=== PATIENT | male | born 1980 | race African-American/Black ===

== ENCOUNTER 2020-06-05 19:04 | Emergency (ER) | payer SELFPAY ==
[2020-06-05] MEDS ORDERED: Sterile Water 0 ML ONE (19:59)
[2020-06-05] MEDS ORDERED: Sterile Water 10 ML ONE (20:00)
[2020-06-05] MEDS ORDERED: Water For Inject, Bacteriostat 30 ML ONE (20:01)
[2020-06-05] MEDS ORDERED: Cyclobenzaprine 10 MG TAB ONE (20:07)
[2020-06-05] MEDS ORDERED: HYDROcodone/Acetaminophen 10/325 mg Tablet ONE (20:07)
== END 2020-06-05 20:28 | disposition home or self-care (01) ==
LOC: MADERS 19:04
DX: M54.41 Lumbago with sciatica, right side (principal); R26.9 Unspecified abnormalities of gait and mobility; Z79.899 Other long term (current) drug therapy
CPT/HCPCS: 36416; 96372; 99283; J1040

== ENCOUNTER 2020-08-01 16:02 | Emergency (ER) | payer MEDICARE, SELFPAY | END 2020-08-01 16:30 | disposition home or self-care (01) | LOC: MADERS 16:02 | DX: M25.412 Effusion, left shoulder (principal); T50.B95A Adverse effect of other viral vaccines, initial encounter | CPT/HCPCS: 99281 ==

== ENCOUNTER 2020-10-26 17:02 | Emergency (ER) | payer BC, MEDICARE ==
[2020-10-26] MEDS ORDERED: Acetaminophen 500 MG TAB ONE (18:18)
[2020-10-26] MEDS ORDERED: Cyclobenzaprine 10 MG TAB ONE (18:18)
== END 2020-10-26 18:30 | disposition home or self-care (01) ==
LOC: MADERS 17:02
DX: M54.31 Sciatica, right side (principal)
CPT/HCPCS: 99283

== ENCOUNTER 2023-02-15 11:06 | Emergency (ER) | payer BC, MEDICARE, SELFPAY | END 2023-02-15 12:58 | disposition home or self-care (01) | LOC: MADERS 11:06 | DX: R05.9 Cough, unspecified (principal); R09.81 Nasal congestion | CPT/HCPCS: 87804; 99283 ==

== ENCOUNTER 2023-07-25 21:49 | Emergency (ER) | payer MEDICARE | END 2023-07-25 23:11 | disposition home or self-care (01) | LOC: MADERS 21:49 | DX: M25.572 Pain in left ankle and joints of left foot (principal) ==

== ENCOUNTER 2023-08-26 04:15 | Emergency (ER) | payer MEDICARE | END 2023-08-26 05:41 | disposition home or self-care (01) | LOC: MADERS 04:15 | DX: R05.9 Cough, unspecified (principal) | CPT/HCPCS: 71046; 93005 ==

== ENCOUNTER 2023-11-01 04:33 | Emergency (ER) | payer MEDICARE ==
[2023-11-01] MEDS ORDERED: Acetaminophen 500 MG TAB ONE (05:35)
== END 2023-11-01 06:04 | disposition left against medical advice (07) ==
LOC: MADERS 04:33
DX: Z53.21 Procedure and treatment not carried out due to patient leaving prior to being seen by health care provider (principal)
CPT/HCPCS: 70450

== ENCOUNTER 2023-11-12 17:36 | Emergency (ER) | payer MEDICARE ==
[2023-11-12 18:55] LABS: Bilirubin Small (Negative); Blood, Urine Negative (Negative); Glucose, Urine (Dipstick) Negative (Negative); Ketone, Urine 40 mg/dL (Negative); Leukocyte Negative (Negative); Nitrite Negative (Negative); Protein, Urine (Dipstick) Negative (Neg-Trace); Specific Gravity, Urine 1.025 (1.005-1.030)
[2023-11-12 18:56] LABS: Bacteria/HPF 1+ HPF (None Seen); CAUTI Indications for Culture Pelvic or flank pain; Clarity Hazy (Clear); RBC/HPF 0-3 HPF (0-3); Squamous Epithelial 0-3 HPF (0-3); WBC/HPF 0-3 HPF (0-3)
[2023-11-12 18:57] LABS: Urine Culture Reflex No No
[2023-11-12 19:02] LABS: ALT (SGPT) 26 U/L (8-55); AST (SGOT) 14 U/L (5-34); Albumin 3.3 g/dL (3.5-5.0); Alkaline Phosphatase 92 U/L (40-110); Anion Gap 15 mmol/L (10-20); BUN (Urea Nitrogen) 12 mg/dL (8.9-20.6); Bilirubin, Total 0.5 mg/dL (0.2-1.2); Calc. Creatinine Clearance 0 mL/min (70-130); Calcium 8.5 mg/dL (7.8-10.44); Carbon Dioxide 23 mmol/L (22-29); Chloride 106 mmol/L (98-107); Estimated GFR 99; Globulin 3.4 g/dL (2.4-3.5); Glucose 90 mg/dL (70-105); Potassium 3.2 mmol/L (3.5-5.1); Protein, Total 6.7 g/dL (6.0-8.3); Sodium 141 mmol/L (136-145)
[2023-11-12 19:08] LABS: #Basophils 0.1 thou/uL (0.0-0.2); #Eosinphils 0.1 thou/uL (0.0-0.7); #Lymphocytes 1.9 thou/uL (1.20-3.40); #Monocytes 0.7 thou/uL (0.11-0.59); #Neutrophils 7.3 thou/uL (1.40-6.50); %Basophils 0.9 % (0.0-1.0); %Monocytes 6.6 % (0.0-10.0); %Neutrophils 72.5 % (42.0-75.0); Hematocrit 43.6 % (42.0-52.0); Hypochromia SLIGHT = 6-15 cells (100X) (0-5/hpf); MDiff Complete? YES; Mean Corpuscular HGB CONC 32.1 g/dL (32.0-36.0); Mean Corpuscular Hemoglobin 29.6 pg (27.0-31.0); Platelet Adequacy Comment Appears Decreased; Platelet Count 127 10x3/uL (130-400); RBC Distribution Width 13.2 % (11.5-14.5); Red Blood Cell (RBC) Count 4.74 mill/uL (4.70-6.10); White Blood Cell (WBC) Count 10.1 10x3/uL (4.8-10.8)
[2023-11-12] MEDS ORDERED: Potassium Chloride 20 MEQ TAB ONE (19:35)
== END 2023-11-12 19:43 | disposition home or self-care (01) ==
LOC: MADERS 17:36
DX: T67.5XXA Heat exhaustion, unspecified, initial encounter (principal); E87.6 Hypokalemia
CPT/HCPCS: 36415; 80053; 81001; 85025; 99285

== ENCOUNTER 2024-03-16 09:27 | Emergency (ER) | payer MEDICARE | END 2024-03-16 10:50 | disposition home or self-care (01) | LOC: MADERS 09:27 | DX: J06.9 Acute upper respiratory infection, unspecified (principal); S06.2X0A Diffuse traumatic brain injury without loss of consciousness, initial encounter | CPT/HCPCS: 87428; 99283 ==